=== PATIENT | male | born 1950 | race Caucasian/White ===

== ENCOUNTER 2024-03-13 12:11 | Emergency (ER) | payer MEDICARE ==
[~2024-03-13] VITALS: Ht 152.4 cm; Wt 87.1 kg
--- NOTE | 2024-03-13 12:40 | ERN ---
ED Note History of Present Illness Stated Complaint: STROKE Chief Complaint: Numbness Time Seen by MD: 12:15 Dictation: A 73-year-old male he has come to the ED. Because the last few days. He said he had some right arm numbness. And right lower face side numbness. Both patient and the family member are very adamant he has not had any dysarthria dysphagia any problems eating breathing speaking swallowing no change in ambulation or imbalance or focal deficits or weakness does have diabetes dyslipidemia hypertension Past Medical History Past Medical History: Anxiety, Diabetes-Type II, High Cholesterol, Hypertension Surgical History: Cholecystectomy, CABG Review of System Dictation Constitutional: Negative for fever,chills, and weight loss Eyes: Negative for injury, pain,redness, and discharge ENT: Negative for injury,pain or swelling Cardiovascular: Negative for chest pain, palpitations, and edema Respiratory: Negative for shortness of breath, cough, and wheezing, Abdomen/GI: Negative for abdominal pain, nausea, vomiting, diarrhea, and constipation Back: Negative for injury and pain : Negative for injury, bleeding and discharge MS/Extremity: Negative for injury and deformity Skin: Negative for rash, and discoloration Neuro: Just paresthesia right lower side of the face. And this right arm Psych: Negative for suicide ideation, homicidal ideation, and hallucinations Initial Vital Sign VS Vital Signs Date Time Temp Pulse Resp B/P (MAP) Pulse Ox O2 Delivery O2 Flow Rate FiO2 03/13/24 12:23 98.4 74 20 135/82 Room Air 0 03/13/24 13:21 96 21 Physical Exam Dictation General: awake, alert, NAD Head/Face: Normocephalic, atraumatic Eyes: PERRL, EOMI, vision at baseline ENT: oral cavity clear, TMs clear, no signs of infection Neck: Trachea midline, supple, no nuchal rigidity Cardiovascular: RRR, normal S1/S2, No MRGs, no JVD Respiratory: CTAB, no respiratory distress, No rales or wheezes Abdomen: Soft, non-tender, non-distended, normal bowel sounds, no guarding or rebound. Skin: Warm, dry, normal turgor, no rash MS/Extremity: Pulses equal, no cyanosis, neurovascular intact, FROM Neuro: COAx4, GCS 15, strength 5/5, CN 2-12 intact, normal cerebellar exam, normal gait, Psych: Normal behavior, mood, and affect normal He has very good neurological exam. NIH 0 cerebellar testing within normal limits. Do not see any if nasal facial droop. Speak in full complete sentences no dysarthria. He is accompanied by significant other is able to corroborate Results (Laboratory/Radiology) Laboratory/Radiology Laboratory Tests Test 03/13/24 12:59 White Blood Count 7.9 K/uL (4.8-10.8) Red Blood Count 4.13 MIL/uL (4.50-6.20) L Hemoglobin 13.4 g/dL (14.0-18.0) L Hematocrit 38.8 % (42-54) L Mean Corpuscular Volume 93.9 fL (79-99) Mean Corpuscular Hemoglobin 32.4 pg (27.0-33.0) Mean Corpuscular Hemoglobin Concent 34.5 g/dL (32.0-36.0) Red Cell Distribution Width 12.7 % (11.0-15.5) Platelet Count 229 K/uL (130-400) Mean Platelet Volume 10.5 fL (7.5-10.5) Immature Granulocyte % (Auto) 0.4 % (0-1) Neutrophils (%) (Auto) 63.5 % (40.0-77.0) Lymphocytes (%) (Auto) 20.9 % (21.0-51.0) L Monocytes (%) (Auto) 12.4 % (3.0-13.0) Eosinophils (%) (Auto) 2.0 % (0.0-8.0) Basophils (%) (Auto) 0.8 % (0.0-5.0) Neutrophils # (Auto) 5.0 K/uL (1.8-7.7) Lymphocytes # (Auto) 1.7 K/uL (1.0-4.8) Monocytes # (Auto) 1.0 K/uL (0.1-1.0) Eosinophils # (Auto) 0.16 K/uL (0.00-0.70) Basophils # (Auto) 0.06 K/uL (0.00-0.20) Absolute Immature Granulocyte (auto 0.03 K/uL (0-1) Nucleated Red Blood Cells 0.0 % (0.0-0.19) Prothrombin Time 10.8 SEC (9.6-11.6) Prothromb Time International Ratio 0.96 (0.85-1.15) Activated Partial Thromboplast Time 23.2 SEC (26.3-35.5) L Sodium Level 143 mmol/L (136-145) Potassium Level 4.3 mmol/L (3.5-5.1) Chloride Level 103 mmol/L (101-111) Carbon Dioxide Level 32 mmol/L (21-32) Blood Urea Nitrogen 13 mg/dL (7-18) Creatinine 1.4 mg/dL (0.5-1.3) H Glomerular Filtration Rate Calc 52 mL/min (>90) Random Glucose 177 mg/dL (70-105) H Total Calcium 9.3 mg/dL (8.5-10.1) Total Creatine Kinase 97 U/L (21-232) Troponin I High Sensitivity 41 ng/L (4-75) B-Type Natriuretic Peptide 133 pg/mL (0-100) H LDL Cholesterol 78 mg/dL (0-99) ED Course ED Course Orders Procedure Category Date Status Time Vital Signs Per CPOE 03/13/24 Transmitted Routine 12:27 Cardiac Monitoring CPOE 03/13/24 Transmitted 12:27 Bedside Glucose CPOE 03/13/24 Transmitted Fingerstick 12:27 Oxygen By Nc/Pulse Ox CPOE 03/13/24 Transmitted 12:27 Saline Lock Iv CPOE 03/13/24 Transmitted 12:27 Nothing By Mouth DIET 03/13/24 Transmitted Lunch Bedside Swallow Eval ST 03/13/24 Transmitted 12:27 Cbc With Differential LAB 03/13/24 Complete 12:27 Partial LAB 03/13/24 Complete Thromboplastin Time 12:27 Prothrombin Time With LAB 03/13/24 Complete INR 12:27 Ct Head/Brain W/O CT 03/13/24 Resulted Contrast 12:27 12 Lead Ekg Tracing- EKG 03/13/24 Complete Technical 12:27 Pulse Ox(Continuous) RT 03/13/24 Transmitted 12:27 Npo W/Aspiration CPOE 03/13/24 Transmitted Precautions 12:27 Complete Nih Stroke CPOE 03/13/24 Transmitted Scale 12:27 Creatine Kinase, Total LAB 03/13/24 Complete 12:27 Troponin I High LAB 03/13/24 Complete Sensitivity 12:27 B-Type Natriuretic LAB 03/13/24 Complete Peptide 12:27 Ldl Direct LAB 03/13/24 Complete 12:27 Urinalysis Profile LAB 03/13/24 Logged 12:27 Chest 1vw RAD 03/13/24 Resulted 12:27 Nihss Every Shift And CPOE 03/13/24 Transmitted PRN 12:27 Neurological Vs Q4hrs CICI 03/13/24 Transmitted 12:27 Basic Metabolic Panel LAB 03/13/24 Complete 12:27 Vital Signs Date Time Temp Pulse Resp B/P (MAP) Pulse Ox O2 Delivery O2 Flow Rate FiO2 03/13/24 13:21 97.9 68 16 139/75 96 Room Air* 0 21 03/13/24 12:23 98.4 74 20 135/82 Room Air 0 Medical Decision Making MDM I told the patient. That this could be a small stroke that we are outside the tPA window. And they will do some labs tests imaging and then likely need to be admitted into the hospital for MRI. He said that we have to be admitted or he could get an MRI and then go home today. I said it depends. Blood start with the lab tests imaging and and continued to have conversations in agreement with this no other questions complaints concerned this is a 12:30 p.m. spoke to the patient. And family at 3:04 p.m.. Told him that this could be a small stroke. Recommend we admitted to the hospital with MRI. He said he would rather just have the MRI order. And then go home later tonight. I told him we would have t o be admitted and to for MRI and neurological consultation. Said this may be could have been neuropathy given with this shoulder arm. Then maybe stress of his face. Says he feels fine. I again I told him I think it is okay if not going to force him against as well. They are understanding and pleasant. I told him he said well they do if the MRI said I said I am not the neurologist. But usually they would do an MRI. And start a statin and aspirin and/or another antiplatelet. He said he feels better. And he would rather go home and follow up with outpatient care again he is alert and oriented x4 over respect to his autonomy and decision-making capacity no other questions complaints DX & DISP Disposition: Discharge Departure Impression: Primary Impression: Arm paresthesia, right Condition: Stable Referrals: SELF,REFERRAL (PCP) ALISHA SANDOVAL MD Mar 13, 2024 12:40
--- NOTE | 2024-03-13 12:46 | EKG ---
[facility] Test Date: 2024-03-13 Test Time: 12:42:56 Pat Name: FRANCK VAZ Department: ED Room: Gender: M Media Relations Director: [id number] : 1950 Requested By: ALISHA SANDOVAL Order Number: [id number] Reading MD: Lyric Dean Measurements Intervals [place] Rate: 69 P: 7 [place]: 221 QRS: -58 QRSD: 93 T: 26 QT: 391 QTc: 420 Interpretive Statements Sinus rhythm Prolonged [place] interval Inferior infarct, old No previous ECG available for comparison Electronically Signed On 03-14-2024 08:09:26 ERP ANALYST by Lyric Dean Please click the below link to view image of tracing.
[2024-03-13 13:10] LABS: BASOPHILS # (AUTO) 0.06 K/uL (0.00-0.20); BASOPHILS % (AUTO) 0.8 % (0.0-5.0); EOSINOPHILS # (AUTO) 0.16 K/uL (0.00-0.70); HEMATOCRIT 38.8 % (42-54); IMMATURE GRANULOCYTE ABSOLUTE 0.03 K/uL (0-1); LYMPHOCYTES # (AUTO) 1.7 K/uL (1.0-4.8); LYMPHOCYTES % (AUTO) 20.9 % (21.0-51.0); MEAN CORPUSCULAR HEMOGLOBIN 32.4 pg (27.0-33.0); MEAN CORPUSCULAR HGB CONC 34.5 g/dL (32.0-36.0); MEAN CORPUSCULAR VOLUME 93.9 fL (79-99); MONOCYTES % (AUTO) 12.4 % (3.0-13.0); NEUTROPHILS % (AUTO) 63.5 % (40.0-77.0); PLATELET COUNT (AUTO) 229 K/uL (130-400); RED BLOOD CELL COUNT(AUTO) 4.13 MIL/uL (4.50-6.20); RED CELL DISTRIBUTION WIDTH 12.7 % (11.0-15.5); WHITE BLOOD COUNT (AUTO) 7.9 K/uL (4.8-10.8)
[2024-03-13 13:17] LABS: CREATININE 1.4 mg/dL (0.5-1.3); POTASSIUM 4.3 mmol/L (3.5-5.1)
[2024-03-13 13:19] LABS: INR 0.96 (0.85-1.15); PROTHROMBIN TIME 10.8 SEC (9.6-11.6)
[2024-03-13 13:21] VITALS: O2SAT 96
[2024-03-13 13:21] LABS: PARTIAL THROMBOPLASTIN TIME 23.2 SEC (26.3-35.5)
[2024-03-13 13:39] LABS: B-TYPE NATRIURETIC PEPTIDE 133 pg/mL (0-100)
--- NOTE | 2024-03-13 13:54 | HMCIMG ---
CT HEAD/BRAIN W/O CONTRAST HISTORY: Right-sided face, arm, leg weakness numbness COMPARISON: None TECHNIQUE: Multiple sequential axial images of the head were obtained from the base of the skull through vertex. Patient was not given contrast through intravenous route. FINDINGS: The ventricles and extraventricular CSF spaces are dilated consistent with cerebral atrophy. Nonspecific white matter changes seen. There is no midline shift, mass effect or herniation. No acute intracranial bleed is seen. Visualized portion of the paranasal sinuses are grossly within normal limits. 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 IMPRESSION: 1. No acute intracranial bleed is seen. 2. Atrophy with white matter changes. CT was performed with one or more following dose reduction techniques: automated exposure control, adjustment of the mA and kv according to patient's size, or use of a iterative reconstruction technique.
--- NOTE | 2024-03-13 14:15 | NUR ---
BEDSIDE SWALLOW EVAL COMPLETED. No s/s of aspiration. Recommend regular solids, thin liquids and pills whole with liquids as tolerated. AMUSEMENT OR RECREATION CARD CHECKER reviewed results and recommendations with patient/family and nurse Bet. AMUSEMENT OR RECREATION CARD CHECKER educated patient on risks and consequences of aspiration. Speech therapy not warranted at this time. All questions answered. Addendum: 03/13/[address] [facility]UCILLE COSTA Amended: Links added.
--- NOTE | 2024-03-13 14:20 | NUR ---
COGNITIVE-LINGUISTIC EVALUATION COMPLETED. WITHIN FUNCTIONAL LIMITS. EVALUATION: Pt AAOX4. Pt REQUESTS WANTS AND NEEDS INDEPENDENTLY WITH CLEAR SPEECH INTELLIGIBILITY. Pt COMMUNICATING AT CONVERSATIONAL LEVEL WITH NO DEFICITS IDENTIFIED AT THIS TIME. Pt COMPLETED COGNITIVE-LINGUISTIC EVALUATION WITH CORRECT AND TIMELY ANSWERS. SPEECH THERAPY NOT WARRANTED. ALL QUESTIONS ANSWERED AT THIS TIME. TACTICAL/MOBILE WATCH OFFICER REVIEWED RESULTS AND RECOMMENDATIONS WITH PATIENT/FAMILY AND NURSE BET. Addendum: 03/13/[address] [facility]UCIL[facility] COSTA Amended: Links added.
--- NOTE | 2024-03-13 14:21 | HMCIMG ---
CHEST 1VW HISTORY: CVA COMPARISON: None FINDINGS: A frontal projection of the chest was obtained. No acute pulmonary infiltrates is seen. Poststernotomy changes are seen. The heart is enlarged. Degenerative changes of the thoracolumbar spine are present. Prominent interstitial markings are seen. No evidence of aortic calcification is seen. IMPRESSION: 1. No acute pulmonary infiltrate is seen.
[2024-03-13 15:24] VITALS: BP 142/75; PULSE 68; RESP 16; TEMP 98.2
== END 2024-03-13 15:34 | disposition home or self-care (01) ==
LOC: EDH 12:11
DX: R20.2 Paresthesia of skin (principal); R20.8 Other disturbances of skin sensation; E11.9 Type 2 diabetes mellitus without complications; E78.00 Pure hypercholesterolemia, unspecified; I10 Essential (primary) hypertension; F41.9 Anxiety disorder, unspecified; Z90.49 Acquired absence of other specified parts of digestive tract; Z95.1 Presence of aortocoronary bypass graft
CPT/HCPCS: 36415; 70450; 71045; 80048; 82550; 83721; 83880; 84484; 85025; 85610; 85730; 92522; 92610; 93005; 99285